=== PATIENT | male | born 1990 | race American Indian/Alaskan Native ===

== ENCOUNTER 2019-05-25 22:09 | Emergency (ER) | payer OTHER ==
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
[2019-05-25 23:28] VITALS: BP 136/85
[2019-05-25] MEDS ORDERED: IBUPROFEN 800 MG TAB PO ONE (23:56)
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
--- NOTE | 2019-05-26 00:33 | XRay Report ---
Right hand 3 views INDICATION: Right hand pain IMPRESSION: Some swelling of the dorsal hand no underlying fracture or subluxation. Signer Name: Ramana Vázquez MD Signed: 05/26/2019 12:28 AM Workstation Name: [id number]
== END 2019-05-26 01:09 | disposition home or self-care (01) ==
LOC: ED 22:09
DX: S60.221A Contusion of right hand, initial encounter (principal); S20.212A Contusion of left front wall of thorax, initial encounter; J45.909 Unspecified asthma, uncomplicated; F17.200 Nicotine dependence, unspecified, uncomplicated; Z91.041 Radiographic dye allergy status; Z79.899 Other long term (current) drug therapy; V49.9XXA Car occupant (driver) (passenger) injured in unspecified traffic accident, initial encounter; Y93.89 Activity, other specified; Y92.89 Other specified places as the place of occurrence of the external cause; Y99.8 Other external cause status